=== PATIENT | male | born 1945 | race Caucasian/White ===

== ENCOUNTER → 2021-05-13 | Outpatient (CLI) | payer MEDICARE ==
[~2021-05-13] MED LIST: CATHETER FLUSH 10 ML SYR IV PRN; HOLD METFORMIN - RECEIVED CONTRAST 20 ML VIAL IV SCH; IOHEXOL 350 MG/ML 150 ML (OMNIPAQUE 350) VIAL IV ONE; NS 100 ML (IVPB) BAG IV ONE
[2021-05-13 15:27] LABS: POTASSIUM 4.4 MMOL/L (3.6-5.0)
[2021-05-13 15:28] LABS: BILIRUBIN,TOTAL 0.3 MG/DL (0.1-1.0); CREATININE SERUM 1.38 MG/DL (0.60-1.30); TOTAL PROTEIN 6.9 GM/DL (6.4-8.2)
[2021-05-13 15:29] LABS: ALBUMIN 3.4 GM/DL (3.2-4.5)
--- NOTE | 2021-05-13 17:20 | Diagnostic Imaging Report ---
PROCEDURE: CT angiography of the chest with contrast. TECHNIQUE: Multiple contiguous axial images were obtained through the chest after uneventful bolus administration of intravenous contrast. 3D reconstructed CTA MIP acquisitions were also performed. Auto Exposure Controls were utilized during the CT exam to meet ALARA standards for radiation dose reduction. INDICATION: Shortness of breath, elevated d-dimer There is complete atelectasis of the left lower lobe. There are some patchy groundglass infiltrates in both lungs. There is a left pleural effusion measuring up to a depth of 8 cm. There are no pulmonary emboli seen. There is no evidence of right ventricular strain. There is some calcific atherosclerosis of the aorta but no aneurysm. There is coronary atherosclerosis. IMPRESSION: Complete left lower lobe atelectasis suggesting endobronchial obstruction. A discrete mass is not seen. Further evaluation with bronchoscopy recommended. Patient also has patchy groundglass infiltrates in both lungs. Covid pneumonia cannot be excluded. There is no evidence for pulmonary embolism. Dictated by: Dictated on workstation # [id number]
== END ==
LOC: RAD FS 14:22
PROVIDERS: ATTEND Family Medicine
DX: Z00.00 Encounter for general adult medical examination without abnormal findings (principal); J98.11 Atelectasis; R79.89 Other specified abnormal findings of blood chemistry
CPT/HCPCS: 36415; 71275; 80053